=== PATIENT | male | born 1975 | race Hispanic/Latino ===

== ENCOUNTER 2020-03-02 12:01 | Inpatient (IN) | payer OTHER ==
[~2020-03-02] VITALS: Ht 180.3 cm; Wt 136.1 kg
[2020-03-02] MEDS ORDERED: PANTOPRAZOLE 40 MG/VIAL ONE (13:22)
[2020-03-02 13:55] LABS: BASOPHILS % (AUTO) 0.3 % (0.0-5.0); EOSINOPHILS % (AUTO) 0.1 % (0.0-8.0); HEMATOCRIT 43.3 % (42-54); LYMPHOCYTES % (AUTO) 8.8 % (21.0-51.0); MEAN CORPUSCULAR HEMOGLOBIN 28.5 pg (27.0-33.0); MEAN CORPUSCULAR HGB CONC 33.9 g/dL (32.0-36.0); MEAN CORPUSCULAR VOLUME 84.1 fL (79-99); MONOCYTES % (AUTO) 9.2 % (3.0-13.0); PLATELET COUNT (AUTO) 189 K/uL (130-400); RED BLOOD CELL COUNT(AUTO) 5.15 MIL/uL (4.50-6.20); RED CELL DISTRIBUTION WIDTH 12.5 % (11.0-15.5); WHITE BLOOD COUNT (AUTO) 12.5 K/uL (4.8-10.8)
[2020-03-02] MEDS ORDERED: HYDRALAZINE HCL 20 MG/ML VIAL IV PRN (14:00)
[2020-03-02] MEDS ORDERED: VANCOMYCIN PROTOCOL PER PHARMACY IV SCH (14:00)
[2020-03-02] MEDS: SODIUM CHLORIDE 0.9% 1000ML 1,000 ML IV SCH (14:00)
[2020-03-02] MEDS ORDERED: CEFAZOLIN SODIUM 1 GM VIAL IVP SCH (14:00)
[2020-03-02] MEDS ORDERED: LACTULOSE 20 GM/30 ML UDCUP PO PRN (14:00)
[2020-03-02] MEDS ORDERED: NITROGLYCERIN 0.4 MG SL TAB SL PRN (14:00)
[2020-03-02 14:01] LABS: INR 0.95 (0.85-1.15); PROTHROMBIN TIME 10.3 SEC (9.6-11.6)
[2020-03-02 14:08] LABS: ALBUMIN 2.8 g/dL (3.5-5.0); BILIRUBIN,TOTAL 1.1 mg/dL (0.2-1.0); CREATININE 1.2 mg/dL (0.5-1.5); POTASSIUM 4.6 mmol/L (3.5-5.1); TOTAL PROTEIN, SERUM 8.3 g/dL (6.0-8.3)
[2020-03-02 14:11] LABS: HEMOGLOBIN A1C 8.7 % (4.0-6.0)
[2020-03-02 14:29] LABS: APPEARANCE,URINE Clear (CLEAR); BILIRUBIN,URINE Negative (NEGATIVE); COLOR,URINE Yellow (YELLOW); GLUCOSE, URINE (UA) >=1000 mg/dL (NEGATIVE); KETONES,URINE >=160 mg/dL (NEGATIVE); LEUKOCYTE ESTERASE ,URINE Negative (NEGATIVE); NITRATE,URINE Negative (NEGATIVE); OCCULT BLOOD,URINE Large (NEGATIVE); PROTEIN,URINE 300 mg/dL (NEGATIVE)
[2020-03-02] MEDS ORDERED: CEFAZOLIN SODIUM 1 GM VIAL ONE (14:33)
[2020-03-02] MEDS ORDERED: SODIUM CHLORIDE 0.9% 50 ML IV ONE (14:34)
[2020-03-02] MEDS ORDERED: SODIUM CHLORIDE 0.9% 1000ML 1,000 ML IV ONE (14:38)
[2020-03-02 14:41] LABS: BACTERIA,URINE Few /HPF (None Seen); SQUAMOUS EPITHELIAL CELL,UR Few /HPF (0-2)
[2020-03-02 14:42] LABS: MUCUS,URINE Moderate LPF (None Seen)
[2020-03-02] MEDS ORDERED: COMPOUND IV REFRIGERATED 1 EACH IVSOLN MISC PRN (15:00)
[2020-03-02] MEDS ORDERED: INSULIN HUMULIN R 100 UNIT/ML 3ML ONE ×2 (17:26→22:11)
[2020-03-02] MEDS: VANCOMYCIN 1.75 GM in SODIUM CHLORIDE 0.9% 250 ML IV SCH (18:00)
[2020-03-02] MEDS: FAMOTIDINE/PF 20 MG/2 ML VIAL IV SCH (21:00)
[2020-03-02] MEDS ORDERED: FAMOTIDINE/PF 20 MG/2 ML VIAL IV ONE (22:10)
[2020-03-03] VITALS (22 sets, daily range): BP systolic 100–155; BP diastolic 54–98
[2020-03-03] MEDS ORDERED: CEFAZOLIN SODIUM 1 GM VIAL ONE (00:25)
[2020-03-03 05:34] LABS: BASOPHILS % (AUTO) 0.3 % (0.0-5.0); EOSINOPHILS % (AUTO) 0.2 % (0.0-8.0); HEMATOCRIT 36.5 % (42-54); LYMPHOCYTES % (AUTO) 12.7 % (21.0-51.0); MEAN CORPUSCULAR HEMOGLOBIN 28.6 pg (27.0-33.0); MEAN CORPUSCULAR HGB CONC 34.5 g/dL (32.0-36.0); MEAN CORPUSCULAR VOLUME 82.8 fL (79-99); MONOCYTES % (AUTO) 10.5 % (3.0-13.0); NEUTROPHILS % (AUTO) 75.4 % (40.0-77.0); PLATELET COUNT (AUTO) 173 K/uL (130-400); RED BLOOD CELL COUNT(AUTO) 4.41 MIL/uL (4.50-6.20); RED CELL DISTRIBUTION WIDTH 12.2 % (11.0-15.5); WHITE BLOOD COUNT (AUTO) 9.6 K/uL (4.8-10.8)
[2020-03-03 05:56] LABS: ALBUMIN 2.2 g/dL (3.5-5.0); BILIRUBIN,TOTAL 0.8 mg/dL (0.2-1.0); POTASSIUM 3.8 mmol/L (3.5-5.1); TOTAL PROTEIN, SERUM 6.9 g/dL (6.0-8.3)
[2020-03-03] MEDS: INSULIN HUMULIN R 100 UNIT/ML 3ML SQ SCH ×6 (06:08→21:00)
[2020-03-03] MEDS: FAMOTIDINE/PF 20 MG/2 ML VIAL IV SCH (07:37)
[2020-03-03] MEDS: VANCOMYCIN 1.75 GM in SODIUM CHLORIDE 0.9% 250 ML IV SCH (07:37)
[2020-03-03] MEDS: ENOXAPARIN SODIUM 40 MG/0.4 ML SYRINGE SQ SCH (07:38)
[2020-03-03] MEDS: HYDROCODONE/ACETAMINOPHEN 5/325 MG TAB PO PRN (07:46)
--- NOTE | 2020-03-03 08:00 | NUR ---
ASSESSMENT PT IS AAOX3, RESTING IN BED. DENIES CP DENIES SOB. NO COMPLAINTS AT THIS TIME, AM MEDS GIVEN. CALL LIGHT WITHIN REACH. CALL LIGHT WITHIN REACH. DR ALCANTARA ROUNDED. ORDERS RECEIVED I TOOK PICTURES OF FOOT, PLACED IN CHART. SENT WOUND CULTURES TO LAB FROM RIGHT FOOT.
[2020-03-03] MEDS: LISINOPRIL 2.5 MG TABLET PO SCH (09:47)
[2020-03-03] MEDS: ZOSYN 3.375GM+NS 50ML 50 ML IV SCH ×2 (09:47→15:52)
[2020-03-03] MEDS: SODIUM CHLORIDE 0.9% 1000ML 1,000 ML IV SCH ×2 (10:17→21:40)
--- NOTE | 2020-03-03 10:30 | NUR ---
MRI OF RIGHT FOOT DONE
[2020-03-03] MEDS ORDERED: METF-446 PO (10:33)
[2020-03-03] MEDS ORDERED: GLIM2TAB30 PO (10:33)
--- NOTE | 2020-03-03 11:45 | NUR ---
DR SINGH ROUNDED SAW PATIENT, ORDER RECEIVED
--- NOTE | 2020-03-03 12:00 | NUR ---
Ghislaine LOVE FOR DR DAVIES STATES HE WILL NOT SEE PATIENT OF YET, CONSULT DR WANG FIRST.
[2020-03-03] MEDS ORDERED: TETANUS/DIPHTHERIA TOXOID [ADULT] 0.5 ML VIAL IM SCH (12:45)
--- NOTE | 2020-03-03 13:40 | NUR ---
DR WANG CONSULT PLACED WITH RIGO AT HIS OFFICE,
--- NOTE | 2020-03-03 15:30 | NUR ---
DR CHIU WOUND CARE ROUNDED WAS MADE AWARE THAT DR WANG IS CONSULTED PER Ghislaine GAMBOA PA-C, DR CHIU ORDERS TO BE REMOVED FROM CASE. DR CHIU REMOVED FROM CASE.
--- NOTE | 2020-03-03 16:33 | NUR ---
DR WANG CALLED MADE AWARE OF CONSULT. STATES HE WILL SEE PATIENT.
--- NOTE | 2020-03-03 17:31 | NUR ---
DR KATHLEEN RUTLEDGE PLAN FOR RIGHT FOOT SURGERY THIS PM. HE NOTIFIED OR CREW ALREADY. CONSENT OBTAINED.
--- NOTE | 2020-03-03 20:00 | NUR ---
PATIENT TAKEN TO SURGERY
[2020-03-03] MEDS ORDERED: LIDOCAINE HCL 1% 20 ML VIAL ONE (20:02)
[2020-03-03] MEDS ORDERED: BUPIVACAINE/PF 0.5% 30ML VIAL ONE (20:02)
[2020-03-03] MEDS ORDERED: MIDAZOLAM HCL 1 MG/ML 2ML VIAL ONE (20:30)
[2020-03-03] MEDS ORDERED: ROCURONIUM 10MG/1ML SYR 10 MG/ML ML ONE ×2 (20:31→20:51)
[2020-03-03] MEDS ORDERED: PROPOFOL 10 MG/ML 20ML VIAL IV ONE (20:31)
[2020-03-03] MEDS ORDERED: GLYCOPYRROLATE 1 MG/5 ML SYRINGE ONE (20:31)
[2020-03-03] MEDS ORDERED: FENTANYL CITRATE PF 50 MCG/1 ML 2ML VIAL ONE (20:31)
[2020-03-03] MEDS: INSULIN GLARGINE 100 UNITS/ML 10 ML VIAL SQ SCH (21:00)
[2020-03-03] MEDS ORDERED: NEOSTIGMINE 5MG/5ML SYR IV ONE (21:24)
[2020-03-03] MEDS ORDERED: IPRATROPIUM/ALBUTEROL SULFATE 3 ML SOLUTION IH ONE (22:14)
[2020-03-03] MEDS ORDERED: SUGAMMADEX SODIUM 200 MG/2 ML VIAL IV ONE (22:21)
--- NOTE | 2020-03-03 23:40 | NUR ---
PATIENT RETURNED FROM SURGERY. REPORT RECEIVED BY EVANGELISTA PULLIAM. ALERT AND ORIENTED. NO RESPIRATORY DISTRESS NOTED. PER REPORT 4TH AND 5TH R TOES AMPUTATED. DRESSING CDI. PATIENT DENIES PAIN AT THIS TIME. RESTING IN BED WITH 2 PILLOWS ELEVATING LEG. WILL MONITOR POST OP VITALS AND NEW AMPUTATION. AT BEDSIDE. IV ABX ADMINISTERED LATE DUE TO PATIENT BEING IN SURGERY.
[2020-03-04] VITALS (9 sets, daily range): BP systolic 116–153; BP diastolic 66–96
[2020-03-04] MEDS: VANCOMYCIN 1.75 GM in SODIUM CHLORIDE 0.9% 250 ML IV SCH ×2 (00:56→09:24)
[2020-03-04] MEDS: FAMOTIDINE/PF 20 MG/2 ML VIAL IV SCH ×3 (00:56→20:38)
[2020-03-04] MEDS: ZOSYN 3.375GM+NS 50ML 50 ML IV SCH ×2 (00:57→08:49)
[2020-03-04 05:26] LABS: BASOPHILS % (AUTO) 0.4 % (0.0-5.0); EOSINOPHILS % (AUTO) 0.2 % (0.0-8.0); HEMATOCRIT 33.9 % (42-54); LYMPHOCYTES % (AUTO) 16.5 % (21.0-51.0); MEAN CORPUSCULAR HEMOGLOBIN 28.1 pg (27.0-33.0); MEAN CORPUSCULAR VOLUME 85.2 fL (79-99); MONOCYTES % (AUTO) 10.2 % (3.0-13.0); NEUTROPHILS % (AUTO) 72.1 % (40.0-77.0); PLATELET COUNT (AUTO) 173 K/uL (130-400); RED BLOOD CELL COUNT(AUTO) 3.98 MIL/uL (4.50-6.20); RED CELL DISTRIBUTION WIDTH 12.6 % (11.0-15.5); WHITE BLOOD COUNT (AUTO) 8.9 K/uL (4.8-10.8)
[2020-03-04] MEDS: INSULIN HUMULIN R 100 UNIT/ML 3ML SQ SCH ×7 (05:48→20:39)
[2020-03-04 05:49] LABS: BILIRUBIN,TOTAL 0.8 mg/dL (0.2-1.0); CREATININE 1.3 mg/dL (0.5-1.5); POTASSIUM 4.1 mmol/L (3.5-5.1); TOTAL PROTEIN, SERUM 6.5 g/dL (6.0-8.3)
--- NOTE | 2020-03-04 07:00 | NUR ---
PATIENT VERBALIZED HE IS UNABLE TO VOID. PATIENT DID VOID TWICE POST SURGERY. DAY NURSE AMELIA TEE.
--- NOTE | 2020-03-04 07:32 | NUR ---
PT. C/O INABILITY TO VOID. BLADDER SCAN PERFORMED AND 825 ML NOTED. EXPLAINED TO PT. MD TO BE NOTIFIED AND LIKELY TO ORDER URINARY CATHETER INSERTION. PT. STATES WISHES TO TRY TO VOID SITTING UP ON SIDE OF BED TO AVOID CATHETER INSERTION. ASSISTED PT. TO SITTING POSITION ON SIDE OF BED WHILE MAINTAINING RIGHT LEG ELEVATED ON CHAIR AND PILLOWS. WILL PROVIDE PRIVACY. PT. WILL CALL FOR ASSISTANCE WHEN NEEDED. CALL LIGHT WITHIN REACH, VERBALIZED ABILITY TO USE.
--- NOTE | 2020-03-04 07:55 | NUR ---
PT. VOIDED APPROXIMATELY 200ML YELLOW URINE. STATES FEELING BETTER; WISHES TO WAIT ON CATHETER INSERTION IF IT IS ORDERED.
[2020-03-04] MEDS: ENOXAPARIN SODIUM 40 MG/0.4 ML SYRINGE SQ SCH (08:49)
[2020-03-04] MEDS: LISINOPRIL 2.5 MG TABLET PO SCH (08:49)
[2020-03-04] MEDS ORDERED: HYDRALAZINE HCL 20 MG/ML VIAL IV PRN (10:45)
[2020-03-04] MEDS: HYDROCODONE/ACETAMINOPHEN 5/325 MG TAB PO PRN ×2 (11:01→20:45)
[2020-03-04] MEDS: CEFTRIAXONE SODIUM 2 GM VIAL IVP SCH (12:42)
[2020-03-04] MEDS: METRONIDAZOLE 500 MG TABLET PO SCH ×2 (12:42→20:38)
--- NOTE | 2020-03-04 16:53 | NUR ---
MET W PATIENT AT BEDSIDE FOR DC PLANNING. LIVES W SPOUSE ANA WHO WILL PROVIDE TRANSPORT. IS EMPLOYED, ACTIVE, INDEPENDENT HAS BEEN DX'D WITH [facility] A LITTLE MORE THAN A YEAR AGO AND FOLLOWS CLOSELY WITH HIS PCP ALEX NAZARIO [facility]. DCP HOME WILL WOUND TO FOOT, FAMILY WILL HAVE TO LEARN DRESSING CHANGES. PATIENT STATES CAN DO. CM WILL FOLLOW ON DC Addendum: 03/04/20 at 1657 by MELISA FAJARDO RN CM Amended: Links added.
[2020-03-04] MEDS: INSULIN GLARGINE 100 UNITS/ML 10 ML VIAL SQ SCH (22:41)
[2020-03-05 04:23] VITALS: BP 123/79
[2020-03-05 05:35] LABS: BASOPHILS % (AUTO) 0.6 % (0.0-5.0); EOSINOPHILS % (AUTO) 1.5 % (0.0-8.0); HEMATOCRIT 33.5 % (42-54); LYMPHOCYTES % (AUTO) 22.3 % (21.0-51.0); MEAN CORPUSCULAR HEMOGLOBIN 28.6 pg (27.0-33.0); MEAN CORPUSCULAR HGB CONC 33.4 g/dL (32.0-36.0); MEAN CORPUSCULAR VOLUME 85.7 fL (79-99); MONOCYTES % (AUTO) 11.1 % (3.0-13.0); NEUTROPHILS % (AUTO) 63.9 % (40.0-77.0); PLATELET COUNT (AUTO) 182 K/uL (130-400); RED BLOOD CELL COUNT(AUTO) 3.91 MIL/uL (4.50-6.20); RED CELL DISTRIBUTION WIDTH 12.6 % (11.0-15.5); WHITE BLOOD COUNT (AUTO) 6.8 K/uL (4.8-10.8)
[2020-03-05] MEDS: METRONIDAZOLE 500 MG TABLET PO SCH (05:49)
[2020-03-05 05:54] LABS: BILIRUBIN,TOTAL 0.5 mg/dL (0.2-1.0); CREATININE 1.5 mg/dL (0.5-1.5); POTASSIUM 4.2 mmol/L (3.5-5.1); TOTAL PROTEIN, SERUM 6.8 g/dL (6.0-8.3)
[2020-03-05] MEDS: INSULIN HUMULIN R 100 UNIT/ML 3ML SQ SCH ×7 (06:13→21:53)
[2020-03-05] MEDS: HYDROCODONE/ACETAMINOPHEN 5/325 MG TAB PO PRN (07:14)
[2020-03-05 08:00] VITALS: BP 137/86
[2020-03-05] MEDS: ENOXAPARIN SODIUM 40 MG/0.4 ML SYRINGE SQ SCH (09:08)
[2020-03-05] MEDS: FAMOTIDINE/PF 20 MG/2 ML VIAL IV SCH ×2 (09:08→21:42)
[2020-03-05] MEDS: LISINOPRIL 2.5 MG TABLET PO SCH (09:08)
--- NOTE | 2020-03-05 11:29 | NUR ---
DR. SINGH IN ROOM IN ROOM SPEAKING WITH PT.
[2020-03-05] MEDS: CLINDAMYCIN HCL 150 MG CAP PO SCH ×3 (11:30→16:50)
[2020-03-05 11:33] VITALS: BP 130/75
--- NOTE | 2020-03-05 11:33 | NUR ---
Diana KATZ FORM STRIPPER, IN ROOM SPEAKING WITH PT. RE:PLAN OF CARE.
[2020-03-05] MEDS: CEFTRIAXONE SODIUM 2 GM VIAL IVP SCH (12:18)
[2020-03-05 16:00] VITALS: BP 162/90
--- NOTE | 2020-03-05 17:01 | NUR ---
DR. STANLEY AND Diana KATZ NP, IN ROOM SPEAKING WITH PT.
[2020-03-05] MEDS: MAG HYDROX/AL HYDROX/SIMETH ES 30 ML SUSP UDCUP PO PRN (18:34)
[2020-03-05 20:10] VITALS: BP 138/60
[2020-03-05] MEDS: INSULIN GLARGINE 100 UNITS/ML 10 ML VIAL SQ SCH (21:50)
[2020-03-05] MEDS: ACETAMINOPHEN 325 MG TAB PO PRN (21:59)
[2020-03-05] MEDS: ONDANSETRON HCL 4 MG/2 ML VIAL IV PRN (21:59)
[2020-03-05 23:44] VITALS: BP 149/91
[2020-03-06] VITALS (7 sets, daily range): BP systolic 109–173; BP diastolic 64–98
[2020-03-06] MEDS: CLINDAMYCIN HCL 150 MG CAP PO SCH ×4 (03:32→21:44)
[2020-03-06] MEDS: ACETAMINOPHEN 325 MG TAB PO PRN (03:32)
[2020-03-06] MEDS: ONDANSETRON HCL 4 MG/2 ML VIAL IV PRN (03:37)
--- NOTE | 2020-03-06 05:00 | NUR ---
Pt. states didn't "feel good". Pt. appears depressed,c/o chills, abd distended s/p toe amputation. Medicated with pain med, antiemetic and warm blanket. States feels much better this am able to take antibiotics with tylenol.
[2020-03-06 06:16] LABS: HEMATOCRIT 35.3 % (42-54); MEAN CORPUSCULAR HEMOGLOBIN 28.1 pg (27.0-33.0); MEAN CORPUSCULAR HGB CONC 32.9 g/dL (32.0-36.0); MEAN CORPUSCULAR VOLUME 85.5 fL (79-99); RED BLOOD CELL COUNT(AUTO) 4.13 MIL/uL (4.50-6.20); RED CELL DISTRIBUTION WIDTH 12.3 % (11.0-15.5); WHITE BLOOD COUNT (AUTO) 5.2 K/uL (4.8-10.8)
[2020-03-06 06:29] LABS: BILIRUBIN,TOTAL 0.4 mg/dL (0.2-1.0); CREATININE 1.1 mg/dL (0.5-1.5); POTASSIUM 3.8 mmol/L (3.5-5.1); TOTAL PROTEIN, SERUM 6.9 g/dL (6.0-8.3)
[2020-03-06] MEDS: LISINOPRIL 2.5 MG TABLET PO SCH (08:37)
[2020-03-06] MEDS: FAMOTIDINE/PF 20 MG/2 ML VIAL IV SCH ×2 (08:37→20:51)
[2020-03-06] MEDS: ENOXAPARIN SODIUM 40 MG/0.4 ML SYRINGE SQ SCH (08:38)
[2020-03-06] MEDS: INSULIN HUMULIN R 100 UNIT/ML 3ML SQ SCH ×7 (08:40→21:00)
--- NOTE | 2020-03-06 11:00 | NUR ---
DR. WANG IN ROOM WITH PT. PERFORMING RIGHT FOOT WOUND DRSG CHANGE.
[2020-03-06] MEDS: MAG HYDROX/AL HYDROX/SIMETH ES 30 ML SUSP UDCUP PO PRN ×2 (12:04→22:22)
[2020-03-06] MEDS: CEFTRIAXONE SODIUM 2 GM VIAL IVP SCH (12:05)
--- NOTE | 2020-03-06 13:02 | NUR ---
NOTIFIED DR. SKAGGS, VETERINARY MILK SPECIALIST FOR DR. MORE, RE:CONSULT FOR PVD EVALUATION; DR. SKAGGS STATES DR. WANG INFORMED HIM DIRECTLY ABOUT CONSULT AND OK FOR DR. MORE TO SEE PT. IN AM.
[2020-03-06] MEDS ORDERED: AMLODIPINE BESYLATE 5 MG TAB PO SCH (16:30)
[2020-03-06] MEDS: SODIUM CHLORIDE 0.9% 1000ML 1,000 ML IV SCH (18:00)
[2020-03-06] MEDS: HYDROCODONE/ACETAMINOPHEN 5/325 MG TAB PO PRN (18:28)
--- NOTE | 2020-03-06 20:55 | NUR ---
MEDS SHIFT ASSESSMENT DONE, PLEASE REFER TO CHART. DUE MEDS ADMINISTERED, TOLERATED WELL. CALL LIGHT WITHIN REACH. WILL MONITOR PT. Addendum: 03/07/20 at 0029 by COLT ROBLEDO RN RN Amended: Links added.
[2020-03-06] MEDS: INSULIN GLARGINE 100 UNITS/ML 10 ML VIAL SQ SCH (21:00)
--- NOTE | 2020-03-06 22:22 | NUR ---
HEARTBURN PT COMPLAINTS OF HEARTBURN. MEDICATED WITH MAALOX PO. INSTRUCTED TO KEEP HOB ELEVATED WHEN LYING DOWN AND TO STAY ON HIS LEFT SIDE. WILL RE-ASSESS PT.
--- NOTE | 2020-03-07 01:35 | NUR ---
ROUNDS PT RESTING WELL, FAIRLY ASLEEP. NO DISTRESS NOTED. KEPT UNDISTURBED FOR NOW. WILL CONTINUE TO MONITOR.
[2020-03-07 03:29] VITALS: BP 159/97
[2020-03-07] MEDS: CLINDAMYCIN HCL 150 MG CAP PO SCH ×4 (03:59→22:26)
[2020-03-07] MEDS: MAG HYDROX/AL HYDROX/SIMETH ES 30 ML SUSP UDCUP PO PRN ×3 (03:59→22:51)
--- NOTE | 2020-03-07 05:35 | NUR ---
ROUNDS PT RESTING WELL. DENIES ANY CONCERNS AT THIS TIME. NO DISTRESS NOTED. FOR MORE CARE.
[2020-03-07 05:59] LABS: BASOPHILS % (AUTO) 0.6 % (0.0-5.0); EOSINOPHILS % (AUTO) 3.4 % (0.0-8.0); HEMATOCRIT 35.8 % (42-54); LYMPHOCYTES % (AUTO) 24.4 % (21.0-51.0); MEAN CORPUSCULAR HEMOGLOBIN 28.4 pg (27.0-33.0); MEAN CORPUSCULAR VOLUME 86.1 fL (79-99); MONOCYTES % (AUTO) 9.4 % (3.0-13.0); NEUTROPHILS % (AUTO) 61.8 % (40.0-77.0); PLATELET COUNT (AUTO) 217 K/uL (130-400); RED BLOOD CELL COUNT(AUTO) 4.16 MIL/uL (4.50-6.20); RED CELL DISTRIBUTION WIDTH 12.4 % (11.0-15.5); WHITE BLOOD COUNT (AUTO) 5.2 K/uL (4.8-10.8)
[2020-03-07] MEDS: INSULIN HUMULIN R 100 UNIT/ML 3ML SQ SCH ×7 (06:03→20:51)
[2020-03-07 06:22] LABS: CREATININE 1.2 mg/dL (0.5-1.5); MAGNESIUM 1.8 mg/dL (1.80-2.40); POTASSIUM 4.2 mmol/L (3.5-5.1)
[2020-03-07] MEDS: FAMOTIDINE/PF 20 MG/2 ML VIAL IV SCH ×2 (07:38→20:50)
[2020-03-07] MEDS: LISINOPRIL 2.5 MG TABLET PO SCH (07:38)
[2020-03-07] MEDS: ENOXAPARIN SODIUM 40 MG/0.4 ML SYRINGE SQ SCH (07:39)
--- NOTE | 2020-03-07 08:00 | NUR ---
ASSESSMENT PT IS AAOX3 RESTING IN BED. DENIES CP DENIES SOB DENIES NV AT THIS TIME. AM MEDS GIVEN, NO COMPLAINTS. BREATHING PATTERN IS EVEN AND UNLABORED WHILE AT REST. RIGHT FOOT WITH DRESSING IN PLACE, CLEAN DRY AND INTACT SECURED. CALL LIGHT WITHIN REACH.
--- NOTE | 2020-03-07 08:45 | NUR ---
DR MORE CALLED BACK MADE AWARE OF CONSULT. STATES HE WILL COME SEE PATIENT.
[2020-03-07 08:48] VITALS: BP 166/99
[2020-03-07] MEDS ORDERED: METRONIDAZOLE 500 MG TABLET PO SCH (11:15)
[2020-03-07] MEDS: CEFTRIAXONE SODIUM 2 GM VIAL IVP SCH (11:31)
--- NOTE | 2020-03-07 12:03 | NUR ---
DR SINGH ROUNDED SAW PATIENT ORDERS RECEIVED
[2020-03-07 12:26] VITALS: BP 149/95
--- NOTE | 2020-03-07 15:51 | NUR ---
NUTRITION EDUCATION RD provided Diabetes and Wound Healing Nutrition Education via phone due to contact isolation. Printed handouts flagged in Pt chart. RD discussed meal portion recommendations with Pt, Pt verbalized understanding. RD also explained of George recommendation to Pt, to which Pt agrees to try. Pt verbalizes understanding to all information. Pt encouraged to notify as additional questions or concerns arise. RD to continue to monitor. Addendum: 03/07/20 at [address] Amended: Links added.
--- NOTE | 2020-03-07 16:00 | NUR ---
DR ARGENIS RUTLEDGE SAW PATIENT AT BEDSIDE
[2020-03-07] MEDS ORDERED: DiphenhydrAMINE HCL 50 MG/ML VIAL IVP PRN (16:15)
[2020-03-07 17:20] VITALS: BP 154/104
[2020-03-07] MEDS ORDERED: HYDRALAZINE HCL 25 MG TABLET PO PRN (17:30)
--- NOTE | 2020-03-07 18:30 | NUR ---
DR WANG AT BEDSIDE DID DRESSING CHANGE TO RIGHT FOOT.
[2020-03-07 20:15] VITALS: BP 150/94
[2020-03-07] MEDS: HYDRALAZINE HCL 10 MG TABLET PO SCH (20:49)
[2020-03-07] MEDS: HYDROCODONE/ACETAMINOPHEN 5/325 MG TAB PO PRN (20:49)
[2020-03-07] MEDS: INSULIN GLARGINE 100 UNITS/ML 10 ML VIAL SQ SCH (20:52)
[2020-03-07] MEDS: ONDANSETRON HCL 4 MG/2 ML VIAL IV PRN (23:30)
[2020-03-08] VITALS: BP 160/96
[2020-03-08 04:25] VITALS: BP 148/72
[2020-03-08 05:54] LABS: ALBUMIN 2.1 g/dL (3.5-5.0); BILIRUBIN,TOTAL 0.4 mg/dL (0.2-1.0); CREATININE 1.4 mg/dL (0.5-1.5); TOTAL PROTEIN, SERUM 7.1 g/dL (6.0-8.3)
[2020-03-08] MEDS: INSULIN HUMULIN R 100 UNIT/ML 3ML SQ SCH ×7 (06:07→20:59)
[2020-03-08] MEDS: CLINDAMYCIN HCL 150 MG CAP PO SCH ×3 (06:08→16:30)
[2020-03-08] MEDS: MAG HYDROX/AL HYDROX/SIMETH ES 30 ML SUSP UDCUP PO PRN ×3 (06:09→16:30)
[2020-03-08] MEDS: FAMOTIDINE/PF 20 MG/2 ML VIAL IV SCH ×2 (07:52→20:58)
[2020-03-08] MEDS: HYDRALAZINE HCL 10 MG TABLET PO SCH ×3 (07:52→20:58)
[2020-03-08] MEDS: ENOXAPARIN SODIUM 40 MG/0.4 ML SYRINGE SQ SCH (07:53)
[2020-03-08] MEDS: LISINOPRIL 2.5 MG TABLET PO SCH (07:53)
[2020-03-08 08:00] VITALS: BP 152/99
--- NOTE | 2020-03-08 08:00 | NUR ---
ASSESSMENT PT IS AAOX3 DENIES CP DENIES SOB DENIES NV NO COMPLAINTS AT THIS TIME. AM MEDS GIVEN. CALL LIGHT WITHIN REACH.
[2020-03-08] MEDS: CEFTRIAXONE SODIUM 2 GM VIAL IVP SCH (10:59)
[2020-03-08 12:00] VITALS: BP 131/79
--- NOTE | 2020-03-08 12:00 | NUR ---
STATUS PT IS AAOX3 NO COMPLAINTS OF PAIN. CALL LIGHT WITHIN REACH.
[2020-03-08 16:03] VITALS: BP 148/89
--- NOTE | 2020-03-08 17:23 | NUR ---
CONSENT OBTAINED FOR RIGHT LEG ATHERECTOMY PLACED IN CHART. WILLY OKEEFE.
[2020-03-08 20:13] VITALS: BP 145/89
[2020-03-08] MEDS: HYDROCODONE/ACETAMINOPHEN 5/325 MG TAB PO PRN (20:57)
[2020-03-08] MEDS: ACETAMINOPHEN 325 MG TAB PO PRN (20:58)
[2020-03-08] MEDS: INSULIN GLARGINE 100 UNITS/ML 10 ML VIAL SQ SCH (20:59)
[2020-03-08] MEDS: SODIUM CHLORIDE 0.9% 1000ML 1,000 ML IV SCH (23:00)
[2020-03-09] VITALS (12 sets, daily range): BP systolic 118–198; BP diastolic 78–113
[2020-03-09] MEDS: CLINDAMYCIN HCL 150 MG CAP PO SCH ×3 (00:06→18:10)
[2020-03-09 05:16] LABS: HEMATOCRIT 34.2 % (42-54); MEAN CORPUSCULAR HEMOGLOBIN 27.8 pg (27.0-33.0); MEAN CORPUSCULAR HGB CONC 32.7 g/dL (32.0-36.0); MEAN CORPUSCULAR VOLUME 84.9 fL (79-99); RED BLOOD CELL COUNT(AUTO) 4.03 MIL/uL (4.50-6.20); RED CELL DISTRIBUTION WIDTH 12.4 % (11.0-15.5); WHITE BLOOD COUNT (AUTO) 4.9 K/uL (4.8-10.8)
[2020-03-09 05:25] LABS: ALBUMIN 2.2 g/dL (3.5-5.0); BILIRUBIN,TOTAL 0.4 mg/dL (0.2-1.0); CREATININE 1.3 mg/dL (0.5-1.5); INR 0.97 (0.85-1.15); PARTIAL THROMBOPLASTIN TIME 30.9 SEC (26.3-35.5); POTASSIUM 3.9 mmol/L (3.5-5.1); PROTHROMBIN TIME 10.5 SEC (9.6-11.6); TOTAL PROTEIN, SERUM 7.1 g/dL (6.0-8.3)
[2020-03-09] MEDS: INSULIN HUMULIN R 100 UNIT/ML 3ML SQ SCH ×6 (07:30→21:50)
--- NOTE | 2020-03-09 07:45 | NUR ---
AM ASSESSMENT PT LAYING IN BED, RESTING. A/O X 3. NO SOB. NO DISTRESS NOTED. DENIES PAIN OR DISCOMFORT @ THIS TIME. DENIES N/V AND/OR DIARRHEA. NPO STATUS REINFORCED, PT TO HAVE RLE ANGIOGRAM TODAY BY DR MORE. S/P RT 4TH & 5TH TOE AMPUTATION, DSG DRY & INTACT. NO DRAINAGE NOTED. DSG CHANGES BY DR WANG. OOB TO CHAIR, UP W/ASSISTANCE. INSTRUCTED TO CALL FOR ASSISTANCE. CALL CAROL W/IN REACH.
[2020-03-09] MEDS: ENOXAPARIN SODIUM 40 MG/0.4 ML SYRINGE SQ SCH (09:00)
[2020-03-09] MEDS: HYDRALAZINE HCL 10 MG TABLET PO SCH ×3 (09:00→21:44)
[2020-03-09] MEDS ORDERED: HEPARIN SODIUM 1000UNIT/ML 10ML VIAL ONE (12:32)
[2020-03-09] MEDS ORDERED: IODIXANOL 320 MG/ML 100 ML VIAL ONE (12:32)
[2020-03-09] MEDS ORDERED: MIDAZOLAM HCL 1 MG/ML 2ML VIAL ONE (12:32)
--- NOTE | 2020-03-09 12:32 | NUR ---
STATUS PT TAKEN TO RETAIL RESET MERCHANDISER VIA BED FOR RLE ANGIOGRAM.
[2020-03-09] MEDS ORDERED: FENTANYL CITRATE PF 50 MCG/1 ML 2ML VIAL ONE (12:33)
[2020-03-09] MEDS ORDERED: LIDOCAINE HCL 2% 20ML ONE (12:33)
[2020-03-09] MEDS ORDERED: NITROGLYCERIN 2 MG/VIAL VIAL IV ONE (12:52)
[2020-03-09] MEDS ORDERED: SODIUM CHLORIDE 0.9% 1000ML 1,000 ML IV SCH (13:45)
[2020-03-09] MEDS: LISINOPRIL 2.5 MG TABLET PO SCH (13:52)
[2020-03-09] MEDS: SODIUM CHLORIDE 0.9% 1000ML 1,000 ML IV SCH (13:53)
[2020-03-09] MEDS: CEFTRIAXONE SODIUM 2 GM VIAL IVP SCH (13:53)
--- NOTE | 2020-03-09 13:55 | NUR ---
STATUS PT BACK FROM COLOR BLENDER VIA BED, S/P RLE ANGIOGRAM BY DR MORE. LT GROIN DSG DRY & INTACT. NO BLEEDING, NO HEMATOMA NOTED. PUNCTURE SITE SOFT, NON-TENDER. (+) BILATERAL PEDAL PULSES. BLE PINK & WARM TO TOUCH. PT INFORMED TO MAINTAIN BR X 4 HRS. 0.9%NACL INFUSING @ 100 ML/HR. PT DENIES PAIN OR DISCOMFORT @ THIS TIME. SIDE RAILS UP. BED @ LOWEST LEVEL. INSTRUCTED TO CALL FOR ASSISTANCE. CALL CAROL W/IN REACH.
[2020-03-09] MEDS: ACETAMINOPHEN 325 MG TAB PO PRN (15:59)
--- NOTE | 2020-03-09 18:17 | NUR ---
MD VISIT DR WANG IN TO SEE PT. TO DO DSG CHANGE @ THIS TIME.
[2020-03-09] MEDS: FAMOTIDINE 20MG TAB 20 MG TAB PO SCH (21:43)
[2020-03-09] MEDS: INSULIN GLARGINE 100 UNITS/ML 10 ML VIAL SQ SCH (21:48)
[2020-03-10 00:07] VITALS: BP 111/69
[2020-03-10] MEDS: CLINDAMYCIN HCL 150 MG CAP PO SCH ×3 (00:59→11:44)
[2020-03-10 04:03] VITALS: BP 134/78
[2020-03-10] MEDS: INSULIN HUMULIN R 100 UNIT/ML 3ML SQ SCH ×4 (05:56→11:44)
[2020-03-10 06:12] LABS: HEMATOCRIT 36.2 % (42-54); MEAN CORPUSCULAR HEMOGLOBIN 28.1 pg (27.0-33.0); MEAN CORPUSCULAR HGB CONC 32.9 g/dL (32.0-36.0); MEAN CORPUSCULAR VOLUME 85.6 fL (79-99); RED BLOOD CELL COUNT(AUTO) 4.23 MIL/uL (4.50-6.20); RED CELL DISTRIBUTION WIDTH 12.7 % (11.0-15.5)
[2020-03-10 06:24] LABS: ALBUMIN 2.3 g/dL (3.5-5.0); BILIRUBIN,TOTAL 0.4 mg/dL (0.2-1.0); CREATININE 1.4 mg/dL (0.5-1.5); POTASSIUM 3.8 mmol/L (3.5-5.1); TOTAL PROTEIN, SERUM 7.4 g/dL (6.0-8.3)
[2020-03-10 07:00] VITALS: BP 149/96
--- NOTE | 2020-03-10 08:15 | NUR ---
AM ASSESSMENT PT SITTING IN BED, WATCHING TV. SPOUSE @ BEDSIDE. A/O X 3. NO SOB. NO DISTRESS NOTED. DENIES PAIN OR DISCOMFORT. DENIES N/V AND/OR DIARRHEA. LT GROIN DSG DRY & INTACT. NO BLEEDING, NO HEMATOMA NOTED. BLE PINK & WARM TO TOUCH. RT FOOT DSG DRY & INTACT. NO DRAINAGE NOTED. UP W/ASSISTANCE. INSTRUCTED TO CALL FOR ASSISTANCE. CALL CAROL W/IN REACH.
[2020-03-10] MEDS: LISINOPRIL 2.5 MG TABLET PO SCH (08:51)
[2020-03-10] MEDS: FAMOTIDINE 20MG TAB 20 MG TAB PO SCH (08:51)
[2020-03-10] MEDS: CEFTRIAXONE SODIUM 2 GM VIAL IVP SCH (08:51)
[2020-03-10] MEDS: HYDRALAZINE HCL 10 MG TABLET PO SCH ×2 (08:51→14:00)
[2020-03-10 11:00] VITALS: BP 155/89
[2020-03-10] MEDS: MAG HYDROX/AL HYDROX/SIMETH ES 30 ML SUSP UDCUP PO PRN (12:53)
--- NOTE | 2020-03-10 14:10 | NUR ---
DISCHARGE VERBAL & WRITTEN DISCHARGE INSTRUCTIONS REVIEWED & GIVEN TO PT & SPOUSE. QUESTIONS ENCOURAGED & CLARIFIED. PROPER CARE & ACTIVITY AFTER RT 4TH & 5TH [place] AMPUTATION REVIEWED. NEW PRESCRIBED MEDICATIONS REVIEWED. PRESCRIPTION GIVEN TO PT; SIGNED COPY PLACED IN CHART. DSG TEACHING & DSG CHANGE TO RT 4TH & 5TH TOE AMPUTATION DONE @ THIS TIME. SPOUSE PARTICIPATED IN DSG CHANGE. PT TOLERATED WELL. IV X 2 DC'D @ THIS TIME. PT & SPOUSE TO GATHER PERSONAL BELONGINGS. WILL NOTIFY STAFF WHEN READY TO BE TAKEN TO PRIVATE VEHICLE.
--- NOTE | 2020-03-10 14:40 | NUR ---
DISCHARGE PT TAKEN TO PRIVATE VEHICLE VIA WC BY Zonia COBOS PCP, ACCOMPANIED BY SPOUSE. NO DISTRESS NOTED.
--- NOTE | 2020-03-10 15:41 | NUR ---
PATIENT GIVEN [facility] AND CONFIRMED USE OF [facility], DISCUSSED MORALEZ OF ABX AT BEDSIDE WITH PT AND SPOUSE , STATES CAN/WILL OBTAIN, SPOUSE FEELS CONFIED WITH DRESSING CHANGES Addendum: 03/11/20 at 1542 by MELISA FAJARDO RN CM Amended: Links added.
== END 2020-03-10 14:40 | disposition home or self-care (01) | DRG 853 ==
LOC: EDH 12:01 → EDHIP 12:02 → 4DH 03-03 01:40
PROVIDERS: ADMIT Hospitalist; ATTEND Hospitalist
PROC: 0Y6M0ZF Detachment at Right Foot, Partial 5th Ray, Open Approach (ICD-10-PCS; 2020-03-03)
PROC: 3E0234Z Introduction of Serum, Toxoid and Vaccine into Muscle, Percutaneous Approach (ICD-10-PCS; 2020-03-03)
PROC: 0Y6M0ZD Detachment at Right Foot, Partial 4th Ray, Open Approach (ICD-10-PCS; principal; 2020-03-03 20:00)
PROC: B41D1ZZ Fluoroscopy of Aorta and Bilateral Lower Extremity Arteries using Low Osmolar Contrast (ICD-10-PCS; 2020-03-09)
PROC: B41F1ZZ Fluoroscopy of Right Lower Extremity Arteries using Low Osmolar Contrast (ICD-10-PCS; 2020-03-09)
DX: A41.9 Sepsis, unspecified organism (principal); M72.6 Necrotizing fasciitis; A48.0 Gas gangrene; L03.115 Cellulitis of right lower limb; L02.611 Cutaneous abscess of right foot; Z68.41 Body mass index [BMI] 40.0-44.9, adult; E11.52 Type 2 diabetes mellitus with diabetic peripheral angiopathy with gangrene; M86.8X7 Other osteomyelitis, ankle and foot; E66.01 Morbid (severe) obesity due to excess calories; B95.62 Methicillin resistant Staphylococcus aureus infection as the cause of diseases classified elsewhere; E11.621 Type 2 diabetes mellitus with foot ulcer; E11.65 Type 2 diabetes mellitus with hyperglycemia; E11.69 Type 2 diabetes mellitus with other specified complication; E78.5 Hyperlipidemia, unspecified; I10 Essential (primary) hypertension; B95.1 Streptococcus, group B, as the cause of diseases classified elsewhere; Z20.828 Contact with and (suspected) exposure to other viral communicable diseases; B95.4 Other streptococcus as the cause of diseases classified elsewhere; L97.519 Non-pressure chronic ulcer of other part of right foot with unspecified severity; Z79.4 Long term (current) use of insulin; Z86.14 Personal history of Methicillin resistant Staphylococcus aureus infection; Z87.891 Personal history of nicotine dependence; Z89.429 Acquired absence of other toe(s), unspecified side; Z23 Encounter for immunization
CPT/HCPCS: 36247; 36415; 73630; 73718; 75710; 76882; 80048; 80053; 80202; 81001; 82948; 83036; 83735; 84145; 85025; 85027; 85610; 85730; 87040; 87070; 87076; 87077; 87186; 87205; 87426; 90714; 93926; 93971; 94640; 97039; 99156; 99157; A6266; C1760; C1769; C1894; C9113; G0378; J0690; J0696; J1200; J1644; J1650; J1815; J2250; J2405; J2543; J2704; J2710; J3010; J3370; J3490; J7030; J7050; Q9967; U0003

== ENCOUNTER 2022-08-16 16:22 | Inpatient (IN) | payer OTHER, SELFPAY ==
[~2022-08-16] VITALS: Ht 180.3 cm; Wt 161.9 kg
[~2022-08-16 16:22] MED LIST: GLIM2TAB30 PO; METF-446 PO
[2022-08-16] MEDS ORDERED: 0.9%NACL 1000ML 1,000 ML IV ONE (17:00)
[2022-08-16] MEDS ORDERED: ZOSYN 3.375GM +NS 50ML IVPB ONE (17:00)
[2022-08-16 17:22] LABS: BASOPHILS % (AUTO) 0.2 % (0.0-5.0); EOSINOPHILS % (AUTO) 0.6 % (0.0-8.0); HEMATOCRIT 46.1 % (42-54); LYMPHOCYTES % (AUTO) 5.4 % (21.0-51.0); MEAN CORPUSCULAR HEMOGLOBIN 27.3 pg (27.0-33.0); MEAN CORPUSCULAR HGB CONC 32.3 g/dL (32.0-36.0); MEAN CORPUSCULAR VOLUME 84.6 fL (79-99); MONOCYTES % (AUTO) 4.5 % (3.0-13.0); PLATELET COUNT (AUTO) 177 K/uL (130-400); RED BLOOD CELL COUNT(AUTO) 5.45 MIL/uL (4.50-6.20); RED CELL DISTRIBUTION WIDTH 13.6 % (11.0-15.5); WHITE BLOOD COUNT (AUTO) 8.7 K/uL (4.8-10.8)
[2022-08-16 18:04] LABS: ALBUMIN 3.5 g/dL (3.5-5.0); CREATININE 1.4 mg/dL (0.5-1.5); POTASSIUM 4.6 mmol/L (3.5-5.1); TOTAL PROTEIN, SERUM 8.4 g/dL (6.0-8.3)
[2022-08-16] MEDS ORDERED: LACTULOSE 20 GM/30 ML UDCUP PO PRN (19:00)
[2022-08-16] MEDS ORDERED: VANCOMYCIN PROTOCOL PER PHARMACY IV PRN (19:00)
[2022-08-16] MEDS ORDERED: ONDANSETRON 4MG INJ IV PRN (19:00)
[2022-08-16] MEDS ORDERED: ACETAMINOPHEN 325 MG TAB PO PRN (19:00)
[2022-08-16 19:08] LABS: APPEARANCE,URINE CLEAR (CLEAR); BILIRUBIN,URINE NEGATIVE (NEGATIVE); COLOR,URINE YELLOW (YELLOW); GLUCOSE, URINE (UA) 300 mg/dL (NEGATIVE); KETONES,URINE 10 mg/dL (NEGATIVE); LEUKOCYTE ESTERASE ,URINE NEGATIVE Leu/uL (NEGATIVE); NITRATE,URINE NEGATIVE (NEGATIVE); OCCULT BLOOD,URINE SMALL (NEGATIVE); PROTEIN,URINE 300 mg/dL (NEGATIVE); UROBILINOGEN,URINE 0.2 mg/dL (0.2-1.0)
[2022-08-16 19:12] LABS: BACTERIA,URINE RARE /HPF (None Seen); WBC,URINE 0-1 /HPF (0-1)
[2022-08-16] MEDS: 0.9%NACL 1000ML 1,000 ML IV SCH ×2 (19:50→22:54)
[2022-08-16] MEDS ORDERED: COMPOUND IV REFRIGERATED 1 EACH IVSOLN MISC PRN (20:00)
[2022-08-16] MEDS: CEFEPIME HCL 2 GM VIAL IVPB SCH (20:28)
[2022-08-16] MEDS: VANCOMYCIN 1.75 GM/250 ML BAG 250 ML IV SCH (21:13)
[2022-08-16] MEDS: FAMOTIDINE 20MG TAB PO SCH (21:25)
[2022-08-16] MEDS: INSULIN HUMULIN R 100 UNIT/ML 3ML SQ SCH (21:25)
[2022-08-16 22:05] VITALS: BP 110/76
[2022-08-16] MEDS: MORPHINE 2 MG SYG IV PRN (22:53)
[2022-08-17 04:02] VITALS: BP 140/76
[2022-08-17] MEDS: CEFEPIME HCL 2 GM VIAL IVPB SCH ×2 (06:05→18:26)
[2022-08-17] MEDS: INSULIN HUMULIN R 100 UNIT/ML 3ML SQ SCH ×4 (06:06→19:48)
[2022-08-17 08:00] VITALS: BP 126/63
[2022-08-17 08:32] LABS: HEMOGLOBIN A1C 8.4 % (4.0-6.0)
[2022-08-17 08:35] LABS: INR 1.15 (0.85-1.15); PROTHROMBIN TIME 12.4 SEC (9.6-11.6)
[2022-08-17 08:36] LABS: PARTIAL THROMBOPLASTIN TIME 33.1 SEC (26.3-35.5)
[2022-08-17 08:39] LABS: ALBUMIN 2.6 g/dL (3.5-5.0); CREATININE 1.4 mg/dL (0.5-1.5); POTASSIUM 4.1 mmol/L (3.5-5.1); TOTAL PROTEIN, SERUM 6.9 g/dL (6.0-8.3)
[2022-08-17] MEDS: ENOXAPARIN SODIUM 40 MG/0.4 ML SYRINGE SQ SCH (08:52)
[2022-08-17] MEDS: FAMOTIDINE 20MG TAB PO SCH ×2 (08:56→19:34)
[2022-08-17] MEDS: VANCOMYCIN 1.75 GM/250 ML BAG 250 ML IV SCH ×2 (08:57→19:34)
[2022-08-17 11:02] LABS: CHOLESTEROL 114 mg/dL (<200); HDL CHOLESTEROL 45 mg/dL (29-71); LDL DIRECT 64 mg/dL (0-99); TRIGLYCERIDES 84 mg/dL (30-200)
[2022-08-17 12:00] VITALS: BP 142/79
[2022-08-17] MEDS ORDERED: GLIM2TAB30 PO (15:14)
[2022-08-17] MEDS ORDERED: PRAV20TA4 PO (15:14)
[2022-08-17] MEDS ORDERED: POTA-200 PO (15:14)
[2022-08-17] MEDS: MORPHINE 2 MG SYG IV PRN (15:44)
[2022-08-17] MEDS: 0.9%NACL 1000ML 1,000 ML IV SCH (15:47)
[2022-08-17 16:00] VITALS: BP 147/94
[2022-08-17 20:45] VITALS: BP 124/78
[2022-08-17 23:46] VITALS: BP 123/53
[2022-08-18] MEDS: 0.9%NACL 1000ML 1,000 ML IV SCH ×2 (01:00→10:01)
[2022-08-18 03:40] VITALS: BP 140/79
[2022-08-18] MEDS: INSULIN HUMULIN R 100 UNIT/ML 3ML SQ SCH ×4 (05:27→20:49)
[2022-08-18] MEDS: CEFEPIME HCL 2 GM VIAL IVPB SCH ×2 (05:46→18:40)
[2022-08-18 06:55] LABS: BASOPHILS % (AUTO) 0.4 % (0.0-5.0); HEMATOCRIT 37.6 % (42-54); LYMPHOCYTES % (AUTO) 11.3 % (21.0-51.0); MEAN CORPUSCULAR HEMOGLOBIN 27.7 pg (27.0-33.0); MEAN CORPUSCULAR HGB CONC 31.9 g/dL (32.0-36.0); MEAN CORPUSCULAR VOLUME 86.8 fL (79-99); MONOCYTES % (AUTO) 8.9 % (3.0-13.0); NEUTROPHILS % (AUTO) 77.8 % (40.0-77.0); PLATELET COUNT (AUTO) 150 K/uL (130-400); RED BLOOD CELL COUNT(AUTO) 4.33 MIL/uL (4.50-6.20); WHITE BLOOD COUNT (AUTO) 8.3 K/uL (4.8-10.8)
[2022-08-18 07:07] LABS: CREATININE 1.3 mg/dL (0.5-1.5); POTASSIUM 4.1 mmol/L (3.5-5.1)
[2022-08-18 07:33] LABS: CRP QUANTITATIVE 279.8 mg/L (0.00-9.0)
[2022-08-18 08:00] VITALS: BP 108/69
[2022-08-18] MEDS: VANCOMYCIN 1.75 GM/250 ML BAG 250 ML IV SCH ×2 (08:14→20:00)
[2022-08-18] MEDS: ENOXAPARIN SODIUM 40 MG/0.4 ML SYRINGE SQ SCH (08:15)
[2022-08-18] MEDS: FAMOTIDINE 20MG TAB PO SCH ×2 (08:15→20:00)
[2022-08-18] MEDS: ACETAMINOPHEN 325 MG TAB PO PRN (08:21)
[2022-08-18 08:25] LABS: ERYTHROCYTE SEDIMENTATION RATE 82 MM/HR (0-15)
[2022-08-18] MEDS: MORPHINE 2 MG SYG IV PRN (10:01)
[2022-08-18 12:00] VITALS: BP 152/88
[2022-08-18 16:00] VITALS: BP 126/77
[2022-08-18 19:00] VITALS: BP 145/94
[2022-08-18 23:26] VITALS: BP 151/79
[2022-08-19 05:00] VITALS: BP 151/91
[2022-08-19] MEDS: CEFEPIME HCL 2 GM VIAL IVPB SCH ×2 (05:30→19:21)
[2022-08-19] MEDS: INSULIN HUMULIN R 100 UNIT/ML 3ML SQ SCH ×6 (05:32→20:52)
[2022-08-19] MEDS: ACETAMINOPHEN 325 MG TAB PO PRN (05:32)
[2022-08-19 06:31] LABS: BASOPHILS % (AUTO) 0.3 % (0.0-5.0); EOSINOPHILS % (AUTO) 2.1 % (0.0-8.0); HEMATOCRIT 33.6 % (42-54); LYMPHOCYTES % (AUTO) 14.4 % (21.0-51.0); MEAN CORPUSCULAR HEMOGLOBIN 27.8 pg (27.0-33.0); MEAN CORPUSCULAR HGB CONC 32.4 g/dL (32.0-36.0); MEAN CORPUSCULAR VOLUME 85.7 fL (79-99); NEUTROPHILS % (AUTO) 74.8 % (40.0-77.0); PLATELET COUNT (AUTO) 139 K/uL (130-400); RED BLOOD CELL COUNT(AUTO) 3.92 MIL/uL (4.50-6.20); RED CELL DISTRIBUTION WIDTH 13.7 % (11.0-15.5); WHITE BLOOD COUNT (AUTO) 7.5 K/uL (4.8-10.8)
[2022-08-19] MEDS: 0.9%NACL 1000ML 1,000 ML IV SCH ×2 (06:40→17:00)
[2022-08-19 07:02] LABS: CREATININE 1.2 mg/dL (0.5-1.5); POTASSIUM 3.9 mmol/L (3.5-5.1)
[2022-08-19 08:00] VITALS: BP 159/90
[2022-08-19] MEDS: VANCOMYCIN 1.75 GM/250 ML BAG 250 ML IV SCH (08:08)
[2022-08-19] MEDS: FAMOTIDINE 20MG TAB PO SCH ×2 (08:08→19:39)
[2022-08-19] MEDS: ENOXAPARIN SODIUM 40 MG/0.4 ML SYRINGE SQ SCH (08:09)
[2022-08-19 11:39] VITALS: BP 151/83
[2022-08-19] MEDS: METOPROLOL TARTRATE 25 MG TAB PO SCH ×2 (14:38→19:39)
[2022-08-19] MEDS ORDERED: IOHEXOL-350 50ML VIAL IV ONE (14:59)
[2022-08-19] MEDS ORDERED: IOHEXOL-350 75 ML VIAL IV ONE (14:59)
[2022-08-19 16:00] VITALS: BP 154/99
[2022-08-19 19:00] VITALS: BP 150/94
[2022-08-19] MEDS ORDERED: EPINEPHRINE PF 1MG (1:1,000) 1 MG/ML AMP SQ SCH (19:42)
[2022-08-19] MEDS ORDERED: DiphenhydrAMINE HCL 50 MG/ML VIAL IV SCH (19:42)
[2022-08-19] MEDS ORDERED: SOLU-MEDROL 125MG VIAL IVP SCH (19:42)
[2022-08-19] MEDS: MORPHINE 2 MG SYG IV PRN (20:06)
[2022-08-19] MEDS ORDERED: INSULIN GLARGINE 100 UNITS/ML 10 ML VIAL SQ SCH (21:00)
[2022-08-19] MEDS ORDERED: ATORVASTATIN 10 MG TABLET PO SCH (21:00)
[2022-08-19] MEDS: VANCOMYCIN 1.5 GM/250 ML BAG 250 ML IV SCH (21:02)
[2022-08-20] MEDS: 0.9%NACL 1000ML 1,000 ML IV SCH (03:00)
[2022-08-20] MEDS: ACETAMINOPHEN 325 MG TAB PO PRN (03:27)
[2022-08-20 04:30] VITALS: BP 146/90
[2022-08-20] MEDS: CEFEPIME HCL 2 GM VIAL IVPB SCH (05:38)
[2022-08-20] MEDS: INSULIN HUMULIN R 100 UNIT/ML 3ML SQ SCH ×6 (05:40→16:15)
[2022-08-20 06:16] LABS: BASOPHILS % (AUTO) 0.2 % (0.0-5.0); EOSINOPHILS % (AUTO) 0.2 % (0.0-8.0); HEMATOCRIT 36.8 % (42-54); LYMPHOCYTES % (AUTO) 9.5 % (21.0-51.0); MEAN CORPUSCULAR HEMOGLOBIN 27.2 pg (27.0-33.0); MEAN CORPUSCULAR HGB CONC 31.5 g/dL (32.0-36.0); MEAN CORPUSCULAR VOLUME 86.4 fL (79-99); MONOCYTES % (AUTO) 1.8 % (3.0-13.0); NEUTROPHILS % (AUTO) 87.7 % (40.0-77.0); PLATELET COUNT (AUTO) 163 K/uL (130-400); RED BLOOD CELL COUNT(AUTO) 4.26 MIL/uL (4.50-6.20); RED CELL DISTRIBUTION WIDTH 13.6 % (11.0-15.5); WHITE BLOOD COUNT (AUTO) 6.5 K/uL (4.8-10.8)
[2022-08-20 06:33] LABS: CREATININE 1.2 mg/dL (0.5-1.5); POTASSIUM 4.6 mmol/L (3.5-5.1)
[2022-08-20 08:00] VITALS: BP 195/110
[2022-08-20] MEDS: VANCOMYCIN 1.5 GM/250 ML BAG 250 ML IV SCH (08:17)
[2022-08-20] MEDS: ENOXAPARIN SODIUM 40 MG/0.4 ML SYRINGE SQ SCH (08:18)
[2022-08-20] MEDS: FAMOTIDINE 20MG TAB PO SCH (08:18)
[2022-08-20] MEDS: METOPROLOL TARTRATE 25 MG TAB PO SCH (08:18)
[2022-08-20] MEDS ORDERED: HONEY 1 APPL/ML TUBE TP SCH (09:00)
[2022-08-20 12:00] VITALS: BP 169/90
[2022-08-20] MEDS ORDERED: METO25 PO (15:57)
[2022-08-20 16:00] VITALS: BP 162/100
== END 2022-08-20 17:50 | disposition home or self-care (01) | DRG 872 ==
LOC: EDH 16:22 → EDHIP 16:23 → 3AH 22:05
PROVIDERS: ADMIT Hospitalist; ATTEND Hospitalist
DX: A41.9 Sepsis, unspecified organism (principal); L03.115 Cellulitis of right lower limb; E87.20 Acidosis, unspecified; E44.0 Moderate protein-calorie malnutrition; Z68.42 Body mass index [BMI] 45.0-49.9, adult; T87.89 Other complications of amputation stump; Y83.8 Other surgical procedures as the cause of abnormal reaction of the patient, or of later complication, without mention of misadventure at the time of the procedure; E86.0 Dehydration; E66.09 Other obesity due to excess calories; E66.01 Morbid (severe) obesity due to excess calories; E11.65 Type 2 diabetes mellitus with hyperglycemia; E11.621 Type 2 diabetes mellitus with foot ulcer; B96.4 Proteus (mirabilis) (morganii) as the cause of diseases classified elsewhere; E11.51 Type 2 diabetes mellitus with diabetic peripheral angiopathy without gangrene; Z79.84 Long term (current) use of oral hypoglycemic drugs
CPT/HCPCS: 36415; 73630; 73718; 75635; 80048; 80053; 80061; 80202; 81001; 82948; 83036; 83605; 84145; 85025; 85610; 85651; 85730; 86140; 87040; 87070; 87076; 87077; 87186; 93925; 93970; G0378; J0171; J0692; J1200; J1650; J1815; J2543; J2930; J7030; Q9967

== ENCOUNTER 2023-12-15 17:33 | Emergency (ER) | payer BC ==
[~2023-12-15] VITALS: Ht 180.3 cm; Wt 156.9 kg
[~2023-12-15 17:33] MED LIST changes: -METF-446 PO; +METO25 PO; +POTA-200 PO; +PRAV20TA4 PO
[2023-12-15 17:34] VITALS: BP 149/85; PULSE 77; RESP 20
[2023-12-15 18:23] LABS: RAPID GROUP A STREP negative (NEGATIVE)
[2023-12-15 18:25] LABS: SARS-CoV-2, RNA, NAAT NEGATIVE SARS CoV-2 (NEGATIVE)
[2023-12-15] MEDS: KETOROLAC 30MG VIAL (30MG/ML) IM ONE (18:27)
[2023-12-15] MEDS: dexaMETHasone SOD PHOSPHATE 4 MG/ML 1ML VIAL IM ONE (18:27)
[2023-12-15 18:33] LABS: INFLUENZA TYPE A Negative For Type A (NEGATIVE); INFLUENZA TYPE B Negative For Type B (NEGATIVE)
[2023-12-15] MEDS ORDERED: METH4TAB3 PO (18:48)
[2023-12-15] MEDS ORDERED: KETO10TA2 PO (18:48)
== END 2023-12-15 19:14 | disposition home or self-care (01) ==
LOC: EDH 17:33
DX: J06.9 Acute upper respiratory infection, unspecified (principal); J02.9 Acute pharyngitis, unspecified; E11.9 Type 2 diabetes mellitus without complications; Z79.899 Other long term (current) drug therapy; Z91.041 Radiographic dye allergy status; Z79.84 Long term (current) use of oral hypoglycemic drugs; Z20.822 Contact with and (suspected) exposure to COVID-19
CPT/HCPCS: 99284; 87635; 87880; 87804 ×2; 96372 ×2; J1100; J1885

== ENCOUNTER → 2024-09-24 | Outpatient (CLI) | payer MEDICARE, MEDICAID ==
[~2024-09-24] MED LIST changes: +KETO10TA2 PO; +METH4TAB3 PO
[2024-09-24 10:05] LABS: ALBUMIN 3.2 g/dL (3.5-5.0); BILIRUBIN,TOTAL 0.5 mg/dL (0.2-1.0); CREATININE 1.9 mg/dL (0.5-1.3); POTASSIUM 5.1 mmol/L (3.5-5.1); TOTAL PROTEIN, SERUM 7.8 g/dL (6.0-8.3)
== END | disposition home or self-care (01) ==
LOC: LAB 09:05
PROVIDERS: ATTEND Internal Medicine Cardiovascular Disease
DX: I10 Essential (primary) hypertension (principal); E11.59 Type 2 diabetes mellitus with other circulatory complications; E78.2 Mixed hyperlipidemia; I73.89 Other specified peripheral vascular diseases; I87.2 Venous insufficiency (chronic) (peripheral); R60.9 Edema, unspecified
CPT/HCPCS: 36415; 80053